=== PATIENT | female | born 1975 | race Caucasian/White ===

== ENCOUNTER 2025-03-21 11:33 | Outpatient (OUT) | payer BC, SELFPAY ==
--- OUTSIDE RECORDS SUMMARY | 2025-03-16 09:16 | XMS_ITS | Continuity of Care Document ---
Author Organization [facility] Address [address] [place] [address] Phone Care Team Providers Care Aquatic Scientist Name Role Phone Hua Solano DO Primary Care Provider Alysha Martinez APRN Attending Provider Care Teams Patient Care Team Team Status: Active Member Role/Relationship Status Dates Hua Solano DO Primary Care Provider Active Patient Care Team Team Status: Inactive Member Role/Relationship Status Dates Hua Solano DO Primary Care Provider Active St art: March 16, 2025 End: March 16, 2025Shaneka Barrios ProviderActiveStart: March 16, 2025 End: March 16, 2025 Chief Complaint and Reason for Visit Chief Complaint Admit Date Poss uti March 16, 2025 1 :39pm Reason for Visit Admit Date Dysuria March 16, 2025 1 :39pm Allergies, Adverse Reactions, Alerts Allergen Type Severity Reaction Last Updated Verified Status aspirin Allergy Unknown Anaphylaxis March 16, 2025 1:36pm Yes Active bee venom protein (honey bee) Allergy Unknown Anaphylaxis March 16 1:36pm Yes Active Penicillins Allergy Unknown Hives March 16, 2025 1:36pm Yes Active Sulfa (Sulfonamide Antibiotics) Allergy Unknown Hives March 16 1:36pm Yes Active Social History Smoking Status Status Start Date End Date Date of Observa tion Smokes tobacco daily (finding) February 06, 2018 9:31am Observation Status Observation Response Date of Response Legal Sex Female (finding) [facility] 1974 Problems Active Problems Problem Diagnosis/Recorded Date Onset Date Stat Acute back pain March 16, 2025 2:08pm Unknown Active Medications Medication Status Dose Units Route Directions Qty Days Refills S tart Date Stop Date End Date Reason(s) Instructions Adherence Fluoxetine 40 mg capsule Active 40 MG PO Daily January 31, 2018 11:00pmComplies with drug therapyAlprazolam 1 mg tablet Ucbvzn3TJPNA2T as needed for AnxietySept2017 11:00pmComplies with drug therapyBuspirone 10 mg tgyapzUavufigpvkjr55XYIJErusw dailyJanuary 31, 2018 11:00pmNov2024 1:49pmdepression/anxietyAlbuterol Sulfate (Proair Hfa) 90 mcg/actuation Hfa Aerosol KvxjczzChmghf5TXGKMOMSCYACUPAq Directed as needed for SOB/wheezingJanuary 31, 2018 11:00pmComplies with drug therapy Cefdinir 300 mg DfjhsdxYrpvhcobaasx798OONWNmrjf dailyJanuary 31, 2018 11:00pmOctober 2017 7:20xwvmndufhzzohXuawtdlgyjwhr-Zrvdssuydgxjp-Gs (Tylenol Sinus Severe) 5-325-200 mg FyvhtzPlsvgh1GDVRIGnyfc 6 hours as needed for Sinus SymptomsJanuary 31, 2018 11:00pmComplies with drug therapy Oxybutynin Chloride 10 mg tablet extended release 24hrActiveMGPONovemb 2024 12:00amComplies with drug therapyFluticasone Propionate 50 mcg/actuation spray,suspensionActiveINTRANASALMarch 16, 2025 12:00amComplies with drug therapyCyclobenzaprine 10 mg gfonhiTbgoqp69JJEVUdkgj times daily as needed for muscle znjnl0810BqsokvceMarch 16, 2025 12:00amComplies with drug therapy Relevant Diagnostic Tests and/or Laboratory Data Laboratory Results Test Collection Date/Time Result Date/Time Result Interpretation Reference Range Result Comment Performing Site Urine Color March 16, 2025 1:57pm March 16, 2025 1 :59pm yellow Urine AppearanceMarch 16, 2025 1:57pmMarch 16, 2025 1:59pmclearUrine Glucose (UA)March 16, 2025 1:57pmMarch 16, 2025 1:59pmnegativeUrine BilirubinMarch 16, 2025 1:57pmMarch 16, 2025 1:59pmnegativeUrine Ketones March 16, 2025 1:57pmMarch 16, 2025 1:59pmnegativeUrine Specific [place] March 16, 2025 1:57pmNov2024 1:59pm1.020Urine Occult Blood March 16, 2025 1:57pmNov2024 1:59pmnegativeUrine pHMarch 16, 2025 1:57pmNov2024 1:59pm6.0Urine ProteinMarch 16, 2025 1:57pm March 16, 2025 1:59pmnegativeUrine UrobilinogenMarch 16, 2025 1:57pm March 16, 2025 1:59pm0.2Urine NitriteMarch 16, 2025 1:57pmNov2024 1:59pmNegativeUrine Leukocyte EsteraseMarch 16, 2025 1:57pmNov2024 1:59pmnegative Vital Signs Vital Reading Result Reference Range Collection Date/Time Height 69 [in_i] March 16, 2025 1:65quVlunmy89.24 kgMarch 16, 2025 1:50pmBody Temperature 98.6 [degF]97.6-99.0March 16, 2025 1:50pmHeart Rate89 /otm59-427LhaogznjMarch 16, 2025 1:50pmRespiratory rate19 /xew06-74HeccrjtaMarch 16, 2025 1:50pmOxygen saturation by Pulse oslxnevw41 %95-100March 16, 2025 1:50pmBP Rgyfkpcm703 mm[Hg]100-140March 16, 2025 1:50pmBP Vbhsirryw14 mm[Hg]60-100March 16, 2025 1:50pmBMI (Body Mass Index)30.0 kg/g6NwdpyerrMarch 16, 2025 1:50pm Advance Directives Advance Directive Response Recorded Date/ Time Advance Directives No January 3:02pm Insurance Providers Guarantor Connie Osorio Address [address] [place] [id number] Info.Home Phone: Coverage Status Update:2025 Payer Group Member ID Coverage Type Subscriber Relationship to Subscriber Effective Date Expiration Date MMO [id number] Richards , M Id: [id number] [address] [place] [id number] Home Phone: Encounters Encounter Location(s) Arrival/Admit Date Discharge/Departure Date Discharge/Departure Disposition Provider(s) Departed Physician/ Provider Office Visit -[facility] March 16, 2025 1:39pm March 16, 2025 2:15pm Discharged to home care or self care (routine discharge) Connie Abreu APRN Recent Diagnosis Onset Date Admit Date Dysuria Unknown March 16 1:39pm Assessments Diagnosis Onset Date Resolution Status Admit Date Dysuria noneactiveMarch 16, 2025 1:39pm
--- OUTSIDE RECORDS SUMMARY | 2025-03-21 11:42 | XMS_ITS | Clinical Summary ---
Author Organization [facility] Address [address] [place] [address] Care Team Providers Care Yeast Stacker Name Role Phone Unallocated, Noms Provider Primary Care Provi katie Allergies Active AllergyReactionsCriticalityNoted HgwyNhytfibzLocthlgJxnbxqq84/02/2023 TyigitivafyWsupyun99/02/1731HxmegtyduvarfnnrEvwoLpu09/02/2023TrimethoprimRashLow 02/07/2023 Medications MedicationSigDispense QuantityRefillsLast FilledStart DateEnd DateStatus busPIRone (Buspar) 10 MG tablet Take 10 mg by mouth in the morning and 10 mg before bedtime.Active dicyclomine (Bentyl) 20 MG tablet TAKE 1 TABLET BY MOUTH 4 TIMES DAILY NEEDED FOR ABDOMINAL PAIN12/01/2022 Active metroNIDAZOLE (Flagyl) 500 MG tablet Take 500 mg by mouth in the morning and 500 mg in the evening and 500 mg before bedtime.12/01/2022ctive ibuprofen 800 MG tablet Indications:Carpal tunnel syndrome, left upper limbTAKE 1 TABLET BY MOUTH 3 TIMES A DAY NEEDED *TAKE WITH FOOD OR MILK* 90 tablet 04/04/2023ctive FLUoxetine (PROzac) 40 MG capsule Indications:Carpal tunnel syndrome, left upper limb,Current mild episode of major depressive disorder, unspecified whether recurrentTAKE 1 CAPSULE BY MOUTH EVERY DAY IN THE MORNING 30 capsule ctive gabapentin (Neurontin) 300 MG capsule Indications: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 60 capsule ctive ALPRAZolam (Xanax) 1 MG tablet Indications:AnxietyTake 1 tablet (1 mg) by mouth 3 (three) times a day as needed for anxiety 30 tablet 4Active Active Problems ProblemNoted DateDiagnosed UcmuIbspawc04/02/2023Carpal tunnel syndrome of left wrist3Carpal tunnel syndrome of right wrist3Chronic vwrvhrysrbu22/02/4054Tnbkwyi34/02/2023Stress mkgkghpyidcr39/02/2023 Immunizations ImmunizationAdministration DatesNext Lars Etienne, adult05/25/2011,01/26/2011, 11/11/2010 Family History Medical HistoryRelationNameCommentsNo Known ProblemsDaughter 1No Known Problems Daughter 2CancerFatherNo Known ProblemsSonRelationNameStatusCommentsDaughter 1 AliveDaughter 2AliveFatherDeceasedMotherAliveSisterAliveSonAlive Social History Tobacco UseTypesPacks/DayYears UsedDateSmoking Tobacco: Never Assessed CommentsUnknownSex and Gender InformationValueDate RecordedSex Assigned at Not on fileLegal VgzVlkeap69/15/2023 6:46 PM EDTGender IdentityNot on fileSexual OrientationNot on file Last Filed Vital Signs Vital SignReadingTime TakenCommentsBlood Fxdslhnv070/78008/10/2021 12:00 PM EDT Pulse--Temperature--Respiratory Rate--Oxygen Saturation--Inhaled Oxygen Concentration--Jpyxvz75.1 kg (214 lb)08/10/2021 12:00 PM GDVXlkczc931.7 cm (5' 8 )08/10/2021 12:00 PM EDTBody Mass Index32.54008/10/2021 12:00 PM EDT Plan of Treatment Not on file Care Teams Team MemberRelationshipSpecialtyStart DateEnd Date Unallocated, Noms Rubén, [address] [place], [place] [id number] PCP - GeneralFamily Medicine01/30/24
--- OUTSIDE RECORDS SUMMARY | 2025-03-21 11:42 | XMS_ITS | Clinical Summary ---
Author Organization [facility] Address [address] [place] [address], [address] [place] [address] Care Team Providers Care Form Maker Plaster Name Role Phone Unavailable Primary Care Provider Unavailabl e Social History Tobacco UseTypesPacks/DayYears UsedDateSmoking Tobacco: Never Assessed CommentsUnknownSex and Gender InformationValueDate RecordedSex Assigned at Not on fileLegal UxkHrgmrw31/21/2018 12:26 PM EDTGender IdentityNot on file Sexual OrientationNot on file Plan of Treatment [place] [id number]
--- NOTE | 2025-03-21 11:47 | XR_ITS ---
The [address] [address] Patient Name: BRADLEY GIFFORD MRN: [id number] date: 1975 Sex: F Assigned Patient Location: [facility] Current Patient Location: [facility] Accession/Order Number: [id number] Exam Date: 03/21/2025 11:52 Report Date: 03/21/2025 12:11 At the request of: KRISH TAYLOR DPConnie Procedure: XR foot DENISE min 3V BILATERAL FEET - 3 views each COMPARISON: None CLINICAL DATA: Hallux valgus deformity with pain, greater on the right. Standing AP, lateral and oblique views were obtained. There are no acute fractures or dislocation. Hallux valgus deformity is seen bilaterally. There is mild sclerosis and hypertrophy along the medial head of the right first metatarsal. There are posterior and plantar calcaneal spurs. No localized soft tissue swelling is seen. XR/XR foot DENISE min 3V IMPRESSION: BILATERAL HALLUX VALGUS DEFORMITY. CALCANEAL SPURS. Impression dictated by: Shannan Martinez M.D. 03/21/2025 12:11 PM Dictation Location: [place] [address] Electronically authenticated by: [id number] Y Date: 03/21/2025 12:11
== END 2025-03-21 11:34 | disposition home or self-care (01) ==
LOC: RAD 11:39
PROVIDERS: PCP Nurse Practitioner; Visit Provider Podiatrist Foot & Ankle Surgery
DX: M79.671 Pain in right foot (principal); M79.672 Pain in left foot; M20.12 Hallux valgus (acquired), left foot; M20.11 Hallux valgus (acquired), right foot; M77.32 Calcaneal spur, left foot; M77.31 Calcaneal spur, right foot
CPT/HCPCS: 73630

== ENCOUNTER 2025-03-22 16:01 | Outpatient (OUT) | payer BC, SELFPAY ==
--- NOTE | 2025-03-22 16:30 | XR_ITS ---
The [place] [id number] Patient Name: BRADLEY GIFFORD MRN: [id number] date: 1975 Sex: F Assigned Patient Location: [facility] Current Patient Location: [facility] Accession/Order Number: [id number] Exam Date: 03/22/2025 16:20 Report Date: 03/22/2025 21:08 At the request of: ROMA SANDOVAL Procedure: XR lumbar spine min 4V LUMBAR SPINE - 4 views CLINICAL HISTORY: back pain COMPARISON: None FINDINGS: Minimal levocurvature lumbar spine and minimal dextrocurvature thoracolumbar junction. Lumbar vertebral heights maintained. Mild multilevel disc space narrowing notably L5-S1 and less so L3-L4. Facet arthropathy notably on the right L4-S1. No fracture malalignment. XR/XR lumbar spine min 4V IMPRESSION: NO ACUTE BONY INJURY. HGZP-BK-WLZZGEGK DEGENERATIVE CHANGES INVOLVING THE LOWER LUMBAR SPINE. Impression dictated by: Papi Hernandez M.D. 03/22/2025 9:08 PM Dictation Location: [place] [address] Electronically authenticated by: [id number] Y Date: 03/22/2025 21:08
== END 2025-03-22 16:02 | disposition home or self-care (01) ==
LOC: RAD 16:02
PROVIDERS: PCP Nurse Practitioner; Visit Provider Nurse Practitioner
DX: M54.9 Dorsalgia, unspecified (principal); Z68.31 Body mass index [BMI] 31.0-31.9, adult; E66.811 Obesity, class 1; M51.369 Other intervertebral disc degeneration, lumbar region without mention of lumbar back pain or lower extremity pain
CPT/HCPCS: 72110